=== PATIENT | female | born 1945 | race Caucasian/White ===

== ENCOUNTER 2017-08-10 11:33 | Emergency (ER) | payer OTHER, MEDICARE ==
--- NOTE | 2017-08-10 11:44 | PDOC ---
History of Present Illness - General Chief Complaint: Abscess Boil Stated Complaint: PILONIDAL CYST Time Seen by Provider: 08/10/17 11:44 - History of Present Illness Initial Comments: 08/10/17 12:06 72-year-old female presents to the emergency department with a possible pilonidal cyst since 5 days ago. Per the patient, she went to an urgent care clinic where there was nothing to drain and thus they recommended a warm compress. The patient's is a physician started her on Keflex due to the pain. He reports the redness and cellulitis has improved, but since she continues to have pain she presented today his see if there was anything to drain. She scheduled an appointment with the surgeon on Friday in [place] where she lives. She denies any fevers, chills, chest pain, shortness of breath, nausea, vomiting , diarrhea, urinary symptoms, headache, weakness or numbness. Past History - Past Medical History Allergies/Adverse Reactions: Allergies Allergy/AdvReac Type Severity Reaction Status Date / Time No Known Allergies Allergy Verified 08/10/17 11:40 Home Medications: Ambulatory Orders Aspirin Coated [Ecotrin -] 81 mg PO DAILY 08/10/17 Calcium Carbonate/Vitamin D3 [Calcium 500 mg Chewable Tablet] 2 tab PO DAILY 05/17 Cephalexin [Keflex] 500 mg PO QID 08/10/17 Cholecalciferol (Vitamin D3) [Vitamin D] 2,000 unit PO DAILY 08/10/17 Review of Systems - Review of Systems Comments:: 08/10/17 12:09 GENERAL/CONSTITUTIONAL: No fever or chills. No weakness. HEAD, EYES, EARS, NOSE AND THROAT: No change in vision. No ear pain or discharge. No sore throat. GASTROINTESTINAL: No nausea, vomiting, diarrhea or constipation. GENITOURINARY: No dysuria, frequency, or change in urination. CARDIOVASCULAR: No chest pain or shortness of breath. RESPIRATORY: No cough, wheezing, or hemoptysis. MUSCULOSKELETAL: No joint or muscle swelling or pain. No neck or back pain. SKIN: +"cyst" NEUROLOGIC: No headache, vertigo, loss of consciousness, or change in strength/ sensation. ENDOCRINE: No increased thirst. No abnormal weight change. HEMATOLOGIC/LYMPHATIC: No anemia, easy bleeding, or history of blood clots. ALLERGIC/IMMUNOLOGIC: No hives or skin allergy. *Physical Exam - Physical Exam Comments: 08/10/17 12:10 GENERAL: Awake, alert, and fully oriented, in no acute distress HEAD: No signs of trauma EYES: PERRLA, EOMI, sclera anicteric, conjunctiva clear ENT: Auricles normal inspection, hearing grossly normal, nares patent, oropharynx clear without exudates. Moist mucosa NECK: Normal ROM, supple, no lymphadenopathy, JVD, or masses LUNGS: Breath sounds equal, clear to auscultation bilaterally. No wheezes, and no crackles HEART: Regular rate and rhythm, normal S1 and S2, no murmurs, rubs or gallops ABDOMEN: Soft, nontender, normoactive bowel sounds. No guarding, no rebound. No masses EXTREMITIES: Normal range of motion, no edema. No clubbing or cyanosis. No cords, erythema, or tenderness NEUROLOGICAL: Normal speech, cranial nerves intact, negative pronator drift, 5/ 5 strength in all 4 extremities, normal sensation to light touch in all 4 extremities, normal cerebellar exam, normal gait, normal reflexes and tone SKIN: Gluteal cleft with adjacent R>L erythema and induration but no fluctuance and no focal collection to drain. Otherwise: warm, Dry, normal turgor, no rashes or lesions noted. Medical Decision Making - Medical Decision Making 08/10/17 12:12 72yo F p/w possile early pilonydal cyst vs cellulitis. Nothing to drain at this time. Pt has appointment with surgeon on Friday, offered to call our surgeons here for possible follow up tomorrow but she declines. Pt clinically stable and well appearing, encouraged her to continue keflex. She requests DC home. I discussed the physical exam findings, ancillary test results and final diagnoses with the patient. I answered all of the patient's questions. The patient was satisfied with the care received and felt comfortable with the discharge plan and treatment plan. The patient will call their primary care physician within 24 hours to arrange follow-up and will return to the Emergency Department with any new, persistent or worsening symptoms. *DC/Admit/Observation/Transfer Diagnosis at time of Disposition: Pilonidal cyst without abscess - Discharge Dispostion Disposition: HOME Condition at time of disposition: Stable Admit: No - Referrals Referrals: Luis Alberto Rutherford MD [Staff Physician] - - Patient Instructions Printed Discharge Instructions: Pilonidal Cyst Additional Instructions: Call Dr. Rutherford's office if you change your mind about a surgery appointment while you are in [place] or otherwise follow up as scheduled on Friday with your surgeon. Continue your course of Keflex. Return to the emergency department if you have any new, worsening or concerning symptoms. - Post Discharge Activity - Attestations Physician Attestion: 08/10/17 12:15 I, Dr. Josesito Chaves MD, attest that this document has been prepared under my direction and personally reviewed by me in its entirety. I further attest, that it accurately reflects all work, treatment, procedures and medical decision -making performed by me.
[2017-08-10 11:54] VITALS: BP 158/78; PULSE 83; TEMP 97.8; BMI 19.5
== END 2017-08-10 12:15 | disposition home or self-care (01) ==
LOC: FER 11:33
DX: L05.91 Pilonidal cyst without abscess (principal)
CPT/HCPCS: 99281-25